=== PATIENT | female | born 1930 | race Caucasian/White ===

== ENCOUNTER 2018-09-29 17:03 | Emergency (ER) | payer MEDICARE ==
[~2018-09-29] VITALS: Ht 177.8 cm; Wt 85.0 kg
[~2018-09-29 17:03] MED LIST: ADLT ASA LOW81 MG PO; B-121000 MC1 PO; DIFLUCAN150 MG OR; DIFLUNISAL500 MG PO; DOLOBID PO; FLEXERIL5 M1 PO; KEFLEX500 MG PO; LIPITOR20 MG PO; NORVASC OR; OXYCODONE/ACETA1 TA1 OR; PERSANTINE50 MG OR; RESTORIL30 MG PO; VIT B12; WARFARIN2.5 MG PO
[2018-09-29 18:31] VITALS: BP 167/85
== END 2018-09-29 18:42 | disposition home or self-care (01) ==
LOC: ED 17:03
DX: S00.83XA Contusion of other part of head, initial encounter (principal); I10 Essential (primary) hypertension; E78.00 Pure hypercholesterolemia, unspecified; W01.0XXA Fall on same level from slipping, tripping and stumbling without subsequent striking against object, initial encounter

== ENCOUNTER 2020-09-08 15:05 | Observation (INO) | payer MEDICARE ==
[~2020-09-08] VITALS: Ht 167.6 cm; Wt 87.3 kg
--- NOTE | 2020-09-08 15:05 | NUR ---
PT TO ROOM VIA EMS STERTCHER FOR BEDSIDE TRIAGE
[2020-09-08] MEDS ORDERED: OMEPRAZOLE DR20 MG PO (15:38)
[2020-09-08] MEDS ORDERED: COZAAR100 MG PO (15:38)
[2020-09-08 15:41] LABS: HEMATOCRIT 43.4 % (37.0-47.0); HEMOGLOBIN 14.5 g/dl (12.0-16.0); IMMATURE GRANULOCYTES 0.3 % (0.0-5.0); MEAN CELL VOLUME 102.4 fL CALC (80.0-100.0); MEAN CORPUSCULAR HGB 34.2 pG CALC (26.0-32.0); MEAN CORPUSCULAR HGB CONC 33.4 g/dL CAL (32.0-36.0); NEUT# 2.23 thou/uL (2.00-7.15); RED BLOOD COUNT 4.24 mill/uL (4.20-5.60); RED CELL DISTRI WIDTH 13.2 % (11.5-15.5)
[2020-09-08 16:00] LABS: ALBUMIN 4.1 g/dL (3.2-5.0); ALKALINE PHOSPHATASE 75 u/l (38-126); ANION GAP 12 (6-22 (CALC)); BILIRUBIN, TOTAL 0.9 mg/dL (0.0-1.4); BUN 27 mg/dL (8-23); BUN/CREATININE RATIO 28 (12-20 (CALC)); CARBON DIOXIDE 26 mmol/l (22-30); CHLORIDE 108 mmol/l (95-108); ETHYL ALCOHOL 0 mg/dl (0-30); GFR 52 ML/MIN (>=60 (CALC)); GFR FOR AFR.AMER. > 60 ML/MIN (>=60 (CALC)); LIPASE 124 u/l (23-300); POTASSIUM 4.7 mmol/l (3.5-5.1); SGOT/AST 41 u/l (9-36); SODIUM 141 mmol/l (137-146); TOTAL PROTEIN 7.3 g/dL (6.3-8.2)
[2020-09-08 16:02] LABS: ACT PARTIAL THROMBO TIME 21.7 SECONDS (20.0-32.5); PROTHROMBIN TIME 10.1 SECONDS (9.0-12.5)
--- NOTE | 2020-09-08 16:20 | NUR ---
ASSISTED TO BEDPAN. PT TOLERATED WELL.
--- NOTE | 2020-09-08 16:25 | NUR ---
TDAP IM LD. PT TOLERATED WELL.
--- NOTE | 2020-09-08 17:05 | NUR ---
AT BEDSIDE FOR LACERATION REPAIR.
--- NOTE | 2020-09-08 18:13 | NUR ---
PRESSURE DRESSING APPPLIED TO SCALP LACERATION. PT TOLERATED WITHOUT DIFFICULTY.
--- NOTE | 2020-09-08 18:45 | NUR ---
POSTERIOR SPLINT APPLIED TO LEFT ELBOW, SECURED WITH LENNIE WRAP. LEFT ARM IN SLING. PT TOLERATED WELL.
--- NOTE | 2020-09-08 18:57 | NUR ---
REPORT CALLED TO ARETHA SUE.
--- NOTE | 2020-09-08 19:05 | NUR ---
TO ROOM 271 VIA STRETCHER, TELE MONITOR IN PLACE.
[2020-09-08 19:10] VITALS: BP 164/93
--- NOTE | 2020-09-08 21:00 | NUR ---
RECEIVED PATIENT TO THE FLOOR AT 1910 VIA STRETCHER FROM THE ED WITH DAUGHTER AT SIDE. PATIENT IS ALERT AND ORIENTED X3. ABLE TO MAKE NEEDS KNOWN. RESPIRATIONS EASY ON ROOM AIR. SKIN WARM AND DRY. HEART RATE REGULAR. BS+ X4. PEDAL PULSES PALPABLE BILATERALLY. LEFT ARM IN SLING DUE TO FRACTURE OF LEFT ELBOW. LEFT ELBOW HAS A CAST MADE IN THE ED IN PLACE AND WRAPPED WITH LENNIE BANDAGE TO KEEP SECURE. VAD #18 LAC S/L, PATENT WITH DRESSING CLEAN DRY AND INTACT. CROWN ON HEAD IS WRAPPED DUE TO LACERATION TO OCCIPITAL WITH TO STAPLE IN PLACE. EXCEPT FOR THE HEAD AND ELBOW, SKIN INTACT WITHOUT ISSUE. PICTURES TAKEN OF BOTH WOUNDS AND PLACED IN CHART. ADMISSION ASSESSMENT COMPLETE. PAIN LEVEL 4 OF 10. PATIENT REPORTS SHE DOES NOT TAKE MEDICATION LIKE TYLENOL, IBUPROFEN, ETC. HEAD AND ELBOW REDRESSED AFTER PICTURES TAKEN. PATIENT TOLERATED WELL. PATIENT ORIENTED TO ROOM AND CALL LIGHT SYSTEM. PLACED ON FALL PRECAUTIONS FOR SAFETY. BED IN LOW POSITION. CALL LIGHT WITHIN REACH.
[2020-09-08 23:25] VITALS: BP 175/86
--- NOTE | 2020-09-09 | NUR ---
PATIENT RESTING QUIETYLY. RESPIRATIONS EASY ON ROOM AIR. C/O NAUSEA. COLD COMPRESS TO NECK APPLIED. BED IN LOW POSITION. CALL LIGHT WITHIN REACH.
[2020-09-09 04:00] VITALS: BP 140/71
--- NOTE | 2020-09-09 04:00 | NUR ---
PATIENT RESTING QUIETLY. PATIENT REPORTED NOT ABLE TO SLEEP. INFORMED PATIENT SHE ALREADY HAD HER RESTORIL. VERBALIZED UNDERSTANDING. BED IN LOW POSITION. CALL LIGHT WITHIN REACH.
[2020-09-09 07:30] VITALS: BP 143/71
--- NOTE | 2020-09-09 07:30 | NUR ---
RECEIEVED REPORT FROM VIKRAM CARIAS. PT RESTIN RODOLFO SEMI FOLWERS POSITION UPON ENTERING ROOM. INTRODUCED SELF TO PT AND DISCUSSED POC. PT IS A/O X3 AND ABLE TO STATE NEEDS . ASSESSMENT AND VITALS COMPLETED AT THIS TIME. BP 143/71, HR 73, O2 97% ON ROOM AIR. RESPIRATIONS ARE EVEN AND UNLABORED WITH NO SIGNS OF DISTRESS NOTED. LUNG SOUNDS ARE CLEAR. HEART RHYTHM IS NORMAL WITH TELE IN PLACE. BOWEL SOUNDS ARE ACTIVE IN ALL QUADRANTS, LAST REORETD BM 09/07/2020. RADIAL AND PEDAL PULSES ARE STRONG WITH NORML CAPILLARY REFILL. 18G EMS FLUSHED, SITE APPEARS HEALTHY AND PATENT. PT PRESENTS WITH LEFT ARM SLING IN PLACE, BRUISING TO LEFT LEG, AND DRESSING APPLIED AROUND HEAD. TWO YOSI PRESENT IN BACK OF HEAD. PT DENIES ANY ANY PAIN AT THIS TIME, ENCOURAGED TO INFORM WRITTER IN ANY PAIN PRESENTS. PT VERBAILZED UNDERSTANDING. ALL SAFTEY PRECAUTIONS ARE IN PLACE WITH CALL LIGHT IN REACH. WILL CONTINUE TO MONITOR
[2020-09-09 08:44] VITALS: BP 143/71
--- NOTE | 2020-09-09 09:25 | NUR ---
DRESSING AROUND HEAQD REPLACE. 4X4 GUAZE AND KRELEX WRAP APPLIED. PT TOLERATED WELL.
--- NOTE | 2020-09-09 10:57 | NUR ---
PT AND DAUGHTER EDUCATED ON DISCHARGE INSTRUCTIONS. PT VERBAILZED UNDERSTANDING. IV REMOVED WITH CATHATER STILL INTACTED. PT TOLERATED WELL. DAUGHTER AT BEDSIDE HELPING IWTH DRESSING POC. ALL SFAETY PRECAUTIONS IN PLACE WITH CALL LIGHT IN REACH. ENCOURAGED TO CALL WHEN READY TO BE TAKEN DOWN.
--- NOTE | 2020-09-09 11:15 | NUR ---
Discharge instructions given. Patient verbalizes understanding of same. Discharged in stable condition via to Home with family. All belongings sent with pt. PT DISCHARGED HOME VIA WHEELCHAIR IN STABLE CONDITION ACCOMPAINED BY DEMI SON AND DAUGHTER. PT LEFT WITH ALL DISCHARGE PAPWERWORK AND INSTRUCTIONS
== END 2020-09-09 11:15 | disposition home or self-care (01) ==
LOC: ED 15:05 → ED-I 15:18 → ED 17:30 → MS2 17:31
PROVIDERS: ADMIT Internal Medicine; ATTEND Internal Medicine
PROC: 0HQ0XZZ Repair Scalp Skin, External Approach (ICD-10-PCS; principal; 2020-09-08)
PROC: 0HQEXZZ Repair Left Lower Arm Skin, External Approach (ICD-10-PCS; 2020-09-08)
PROC: 2W39X1Z Immobilization of Left Upper Extremity using Splint (ICD-10-PCS; 2020-09-08)
DX: S01.01XA Laceration without foreign body of scalp, initial encounter (principal); S51.012A Laceration without foreign body of left elbow, initial encounter; S52.122A Displaced fracture of head of left radius, initial encounter for closed fracture; S70.12XA Contusion of left thigh, initial encounter; I10 Essential (primary) hypertension; W01.0XXA Fall on same level from slipping, tripping and stumbling without subsequent striking against object, initial encounter; Y92.512 Supermarket, store or market as the place of occurrence of the external cause; Z79.82 Long term (current) use of aspirin; Z20.828 Contact with and (suspected) exposure to other viral communicable diseases

== ENCOUNTER 2022-02-03 09:50 | Observation (INO) | payer MEDICARE ==
[2022-02-03] VITALS (16 sets, daily range): BP systolic 142–178; BP diastolic 69–83
[~2022-02-03] VITALS: Ht 167.6 cm; Wt 82.0 kg
[~2022-02-03 09:50] MED LIST changes: +COZAAR100 MG PO; +OMEPRAZOLE DR20 MG PO; -RESTORIL30 MG PO; +TEMAZEPAM30 MG PO
[2022-02-03 10:35] LABS: URINE BILIRUBIN - DIPSTICK NEGATIVE (NEGATIVE); URINE BLOOD DIPSTICK NEGATIVE (NEGATIVE); URINE COLOR YELLOW; URINE GLUCOSE - DIPSTICK NEGATIVE (NEGATIVE); URINE KETONE NEGATIVE (NEGATIVE); URINE LEUK ESTERASE NEGATIVE (NEGATIVE); URINE PROTEIN - DIPSTICK 30 mg/dL (NEG-TRACE); URINE UROBILINOGEN - DIPSTICK 0.2 E.U./dL (0.2)
[2022-02-03 10:38] LABS: URINE NITRITE - DIPSTICK NEGATIVE (Negative)
[2022-02-03 10:43] LABS: HEMATOCRIT 42.8 % (37.0-47.0); HEMOGLOBIN 14.6 g/dl (12.0-16.0); IMMATURE GRANULOCYTES 0.4 % (0.0-5.0); MEAN CELL VOLUME 101.2 fL CALC (80.0-100.0); MEAN CORPUSCULAR HGB 34.5 pG CALC (26.0-32.0); MEAN CORPUSCULAR HGB CONC 34.1 g/dL CAL (32.0-36.0); NEUT# 3.99 thou/uL (2.00-7.15); RED BLOOD COUNT 4.23 mill/uL (4.20-5.60); RED CELL DISTRI WIDTH 11.9 % (11.5-15.5)
[2022-02-03 11:11] LABS: PROTHROMBIN TIME 10.3 SECONDS (9.0-12.5)
[2022-02-03 11:13] LABS: URINE RBC 0-2 RBC/hpf (0-5); URINE SQUAMOUS EPITHELIAL CELL RARE EPI/hpf (0-FEW)
[2022-02-03] MEDS ORDERED: MELOXICAM7.5 MG PO (11:28)
[2022-02-03] MEDS ORDERED: CENTRUM ADULTS1 TAB PO (11:29)
[2022-02-03] MEDS ORDERED: VITAMIN C500 MG PO (11:29)
[2022-02-03] MEDS ORDERED: VITAMIN D32000 UNI2 PO (11:30)
[2022-02-03] MEDS ORDERED: NORVASC2.5 M1 PO (11:30)
[2022-02-03 11:34] LABS: ALBUMIN 4.1 g/dL (3.2-5.0); ALKALINE PHOSPHATASE 88 u/l (38-126); ANION GAP 10 (6-22 (CALC)); BILIRUBIN, TOTAL 0.6 mg/dL (0.0-1.4); BUN 28 mg/dL (8-23); BUN/CREATININE RATIO 43 (12-20 (CALC)); CARBON DIOXIDE 28 mmol/l (22-30); CHLORIDE 104 mmol/l (95-108); CREATININE 0.6 mg/dL (0.5-1.0); GFR > 60 ML/MIN (>=60 (CALC)); GFR FOR AFR.AMER. > 60 ML/MIN (>=60 (CALC)); POTASSIUM 3.9 mmol/l (3.5-5.1); SGOT/AST 32 u/l (9-36); SODIUM 139 mmol/l (137-146); TOTAL PROTEIN 7.5 g/dL (6.3-8.2)
[2022-02-03] MEDS ORDERED: TRAMADOL HCL50 MG PO (16:17)
[2022-02-04 04:28] VITALS: BP 139/58
[2022-02-04 05:46] LABS: HEMATOCRIT 39.6 % (37.0-47.0); HEMOGLOBIN 13.4 g/dl (12.0-16.0); MEAN CELL VOLUME 102.1 fL CALC (80.0-100.0); MEAN CORPUSCULAR HGB 34.5 pG CALC (26.0-32.0); MEAN CORPUSCULAR HGB CONC 33.8 g/dL CAL (32.0-36.0); RED BLOOD COUNT 3.88 mill/uL (4.20-5.60)
[2022-02-04 05:52] LABS: ANION GAP 9 (6-22 (CALC)); BUN 27 mg/dL (8-23); BUN/CREATININE RATIO 33 (12-20 (CALC)); CARBON DIOXIDE 27 mmol/l (22-30); CHLORIDE 106 mmol/l (95-108); CREATININE 0.8 mg/dL (0.5-1.0); GFR > 60 ML/MIN (>=60 (CALC)); GFR FOR AFR.AMER. > 60 ML/MIN (>=60 (CALC)); MAGNESIUM 2.1 mg/dL (1.6-2.3); SODIUM 138 mmol/l (137-146)
[2022-02-04 07:54] VITALS: BP 170/77
[2022-02-04 10:16] VITALS: BP 131/56
== END 2022-02-04 12:23 | disposition home or self-care (01) ==
LOC: ED 09:50 → ED-I 15:34 → ED 15:44 → MS2 15:45
PROVIDERS: Internal Medicine; ADMIT Hospitalist; ATTEND Hospitalist
PROC: 3E1B78Z Irrigation of Ear using Irrigating Substance, Via Natural or Artificial Opening (ICD-10-PCS; principal; 2022-02-03)
PROC: 3E1B78Z Irrigation of Ear using Irrigating Substance, Via Natural or Artificial Opening (ICD-10-PCS; 2022-02-03)
DX: R55 Syncope and collapse (principal); R11.2 Nausea with vomiting, unspecified; S00.93XA Contusion of unspecified part of head, initial encounter; H61.23 Impacted cerumen, bilateral; K02.9 Dental caries, unspecified; H81.10 Benign paroxysmal vertigo, unspecified ear; I10 Essential (primary) hypertension; W18.30XA Fall on same level, unspecified, initial encounter; Z85.3 Personal history of malignant neoplasm of breast; Z90.10 Acquired absence of unspecified breast and nipple; Z90.710 Acquired absence of both cervix and uterus; Z20.822 Contact with and (suspected) exposure to COVID-19

== ENCOUNTER 2022-05-05 20:39 | Emergency (ER) | payer MEDICARE ==
[~2022-05-05] VITALS: Ht 170.2 cm; Wt 85.0 kg
[~2022-05-05 20:39] MED LIST changes: +CENTRUM ADULTS1 TAB PO; +MELOXICAM7.5 MG PO; +NORVASC2.5 M1 PO; +TRAMADOL HCL50 MG PO; +VITAMIN C500 MG PO; +VITAMIN D32000 UNI2 PO
[2022-05-05] MEDS ORDERED: CEPHALEXIN500 M1 PO (23:52)
== END 2022-05-06 00:51 | disposition home or self-care (01) ==
LOC: ED 20:39
DX: S61.412A Laceration without foreign body of left hand, initial encounter (principal); I10 Essential (primary) hypertension; W22.8XXA Striking against or struck by other objects, initial encounter; Y92.009 Unspecified place in unspecified non-institutional (private) residence as the place of occurrence of the external cause